=== PATIENT | female | born 1990 | race Caucasian/White ===

== ENCOUNTER 2017-12-04 10:33 | Emergency (ER) | payer OTHER, SELFPAY ==
[2017-12-04 10:33] VITALS: BP 132/82; PULSE 120; RESP 16; TEMP 37; O2SAT 96; BMI 28.3
--- NOTE | 2017-12-04 11:01 | ED.DCSUM_ITS ---
- ER Visit Summary Date of Service: 12/04/17 Chief Complaint: Nausea, vomiting, diarrhea History of Present Illness: The patient is a 27 F who is at 39 weeks and 6 days. Presents with nausea, vomiting, and diarrhea. Symptoms started today at 12:30 AM. She has had diarrhea about every 30 minutes. No blood. She does have some lower abdominal cramping pain. She also reports contractions about once per hour that last about 40 seconds. Denies any fluid leaking or bleeding vaginally. She does have positive movement. She has been exposed to multiple people with a stomach bug at work. Physical Examination: Tachycardic at 120. Otherwise vitals unremarkable. Afebrile. Alert and oriented and in no acute distress. Skin appears normal. Heart regular. Lungs clear. Abdomen gravid and nontender. Test Results: We will check basic labs, urinalysis. Emergency Department Course and Treatment: Patient received fluids and Phenergan. heart tones checked. I paged her OB upon the patient's arrival in the emergency department. heart tones 140. White count 12.3 and hemoglobin 11.2. The unremarkable. Urinalysis appears to show contamination. I sent a culture but there were no bacteria. heart tones 140. Nausea resolved. Patient has occasional diarrhea. Contractions 3-4 times per hour. She was told to go to OB if she has contractions every 10 minutes, 6 an hour. I spoke with Dr. Huggins. Follow-up with OB for any OB issues otherwise no further recommendations. Treatment Plan: As above Disposition: Discharged Impression: 1. Nausea, vomiting, diarrhea 2. Third trimester This note was generated with [employer] international dictation software. It may contain incorrect words, spelling, and punctuation that were not noted in review of the chart prior to signing ED Disposition - Plan for ED Patient: Chief Complaint: Nausea/Vomiting/Diarrhea Referrals: Care Physician,No Primary [Primary Care Provider] -
[2017-12-04] MEDS: 0.9% Normal Saline 1,000 ML 1000 ML IV (11:24)
[2017-12-04 11:36] LABS: Absolute Lymphocyte Count 0.67 X10^3/ul (0.83-4.51); Absolute Neutrophil Count 11.1 X10^3/uL (2.0-7.7); Basophil# 0.01 X10^3/uL; Basophil% 0.1 % (0-1); Eosinophil# 0.04 X10^3/uL; Eosinophils% 0.3 % (0-5); Hematocrit 33.3 % (37-47); Hemoglobin 11.2 g/dl (12.0-15.0); Lymphocyte # 0.67 X10^3/ul (4.0); Lymphocyte % 5.5 % (19-41); Mean Corp Hgb Conc 33.6 g/gl (32-36); Mean Corpuscular Hgb 30.5 pg (27.0-32.0); Mean Corpuscular Volume 90.7 fL (81-99); Mean Platelet Vol. 11.5 fl (6.2-12.0); Monocyte# 0.46 X10^3/uL; Monocyte% 3.7 % (0-10); Neutrophil # 11.05 X10^3/uL (2.7-7.7); Platelet Count 180 K/mm3 (150-450); RBC Distribution Width CV 13.9 % (11.6-14.6); RBC Distribution Width SD 44.2 fl (35.1-43.9); Red Blood Count 3.67 M/mm3 (4.2-5.4); White Blood Count 12.3 K/mm3 (4.4-11.0)
[2017-12-04 11:41] LABS: POSITIVE COUNT NO; POSITIVE DIFFERENTIAL NO; POSITIVE MORPHOLOGY NO
[2017-12-04 11:55] LABS: ALB/GLOB Ratio 0.7 RATIO (0.9-2.4); AST(SGOT) 19 U/L (15-37); Alanine Aminotransfer ALT/SGPT 20 U/L (13-56); Albumin, Serum 2.6 g/dL (3.2-5.0); Alkaline Phosphatase 122 U/L (45-117); Anion Gap 10 (5-15); BUN 11 mg/dL (7-18); BUN/Creat Ratio 23.6 RATIO (10-20); Calcium,Total 8.4 mg/dL (8.5-10.1); Chloride 107 mmol/L (98-107); Creatinine, Serum 0.47 mg/dL (0.55-1.02); EST Glomerular Filtration Rate 171 mL/min (>60); Est Glom Filt Rate - Afr Amer 206 mL/min (>60); Estimated Creatinine Clearance 182.98 ml/min; Globulin 3.9 g/dL (2.2-4.2); Glucose 76 mg/dL (74-106); Potassium 3.6 mmol/L (3.5-5.1); Protein, Total 6.5 g/dL (6.4-8.2); Sodium Level 139 mmol/L (136-145)
--- NOTE | 2017-12-04 11:58 | ED.RN ---
Called lab to request they run urine that was sent with blood. all blood has resulted.
--- NOTE | 2017-12-04 13:01 | ED.RN ---
Called lab again to inquire of urine results as it has been over 1 hr. Rafael said she had to dip it and spin it, so another 7 min.
[2017-12-04 13:03] LABS: Bacteria 0 SEEN /hpf (None Seen); Mucous, Urine 0 SEEN /hpf (<or=2+); Red Blood Cells-Urine 0 SEEN /hpf (0-5)
[2017-12-04 13:04] LABS: Color, Urine Yellow (Yellow); Glucose, Dipstick Normal (Normal); Leukocyte Esterase-Dipstick 25 /ul (Negative); Nitrite-Dipstick Negative (Negative); Occult Blood-Urine Negative /ul (Negative); Protein-Dipstick 15 mg/dl (Negative); Urine Clarity Clear (Clear); Urine Urobilinogen Normal (Normal)
[2017-12-04 13:06] LABS: Ketone-Dipstick 150 mg/dl (Negative); Urine Bilirubin Dipstick 1 mg/dL (Negative)
[2017-12-04 13:10] LABS: Squamous Epithelial Cells - UA 0-5 SEEN /hpf (5-10); White Blood Cells 0-5 SEEN /hpf (0-5)
--- NOTE | 2017-12-04 13:33 | ED.DEP ---
ED Disposition - Plan for ED Patient: Chief Complaint: Nausea/Vomiting/Diarrhea Instructions: ED Vomiting Diarrhea Nonspecific Ad Referrals: Stefani Barajas [STAFF PHYSICIAN] -
[2017-12-04 13:56] VITALS: BP 118/75; PULSE 103; RESP 16; O2SAT 97
== END 2017-12-04 13:57 | disposition home or self-care (01) ==
PROVIDERS: Emergency Provider Emergency Medicine
DX: O99.89 Other specified diseases and conditions complicating pregnancy, childbirth and the puerperium (principal); R11.2 Nausea with vomiting, unspecified; R19.7 Diarrhea, unspecified; R10.30 Lower abdominal pain, unspecified; R00.0 Tachycardia, unspecified; Z3A.39 39 weeks gestation of pregnancy
CPT/HCPCS: 80053; 81001; 85025; 87086; 96361; 96374; 99283; J7030

== ENCOUNTER 2017-12-05 09:10 | Inpatient (IN) | payer OTHER, SELFPAY ==
[2017-12-05 08:50] VITALS: BMI 28.3
[2017-12-05 09:06] LABS: ROM Internal Control Test YES-OK TO RESULT pt. (Internal QC)
[2017-12-05 09:08] LABS: ROM Patient Test POSITIVE (Negative)
[2017-12-05] MEDS: Lactated Ringers 1,000 ML 50 ML IV ×2 (09:51→11:33)
[2017-12-05 09:52] LABS: Hematocrit 32.7 % (37-47); Hemoglobin 10.8 g/dl (12.0-15.0); Mean Corpuscular Hgb 29.8 pg (27.0-32.0); Mean Corpuscular Volume 90.3 fL (81-99); Mean Platelet Vol. 10.9 fl (6.2-12.0); Platelet Count 176 K/mm3 (150-450); RBC Distribution Width SD 45.5 fl (35.1-43.9); Red Blood Count 3.62 M/mm3 (4.2-5.4); Scan Indicated on CBC? Y/N NO; White Blood Count 6.8 K/mm3 (4.4-11.0)
[2017-12-05] MEDS: Oxytocin 30 units/NS 500 ml 30 UNITS/500 ML IV.SOLN IV (10:18)
[2017-12-05] MEDS: fentaNYL-bupivacaine (epidural) 100 ML BAG EPIDURAL (12:05)
--- NOTE | 2017-12-05 12:58 | PCM.HP.OB ---
History Date of Admission: 12/05/17 Final NEWTON: 12/05/17 Final NEWTON Source: LMP Gestational age: 40 Weeks and 0 Days History of this : @ 40 wks c/o SROM and irregular contractions. pt is dated by her LMP c/w first trimester ultrasound. 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 Pertinent Past Medical History: Malignant histocytosis of thorax Allergies No Known Allergies Allergy (Verified 04/15/16 08:11) Current Medications Acetaminophen (Tylenol) 325 - 650 mg PO Q4H PRN PRN PRN Reason: PAIN OR FEVER >100.4F Al Hydroxide/Mg Hydroxide (Mylanta Ii) 15 - 30 ml PO Q4H PRN PRN PRN Reason: INDIGESTION Citric Acid/Sodium Citrate (Bicitra) 30 ml PO UD PRN Lactated Ringer's () 1,000 mls @ 50 mls/hr IV .Q20H [facility] Last Admin: 12/05/17 11:33 Dose: 50 mls/hr Oxytocin/Sodium Chloride () 30 units in 500 mls @ 1 mls/hr IV .Q500H [facility] Naloxone HCl 4 mg/ Dextrose 504 mls @ 0 mls/hr IV PRN PRN; Protocol PRN Reason: TO MAINTAIN RR>10 Nalbuphine HCl (Nubain) 5 - 10 mg IV Q3H PRN PRN PRN Reason: PAIN (4-10/10) Naloxone HCl (Narcan) 0.2 mg IV Q1M PRN PRN Reason: RR<10 AND PT UNRESPONSIVE Stop: 12/06/17 12:44 Ondansetron HCl (Zofran) 4 mg IV Q8H PRN PRN PRN Reason: NAUSEA Promethazine HCl (Phenergan) 6.25 - 12.5 mg IV Q4H PRN PRN; Protocol PRN Reason: IF NAUSEA PERSISTS Sodium Chloride () 5 - 15 ml IV UD [facility] Last Admin: 12/05/17 09:51 Dose: Not Given Smoking Status: Former smoker Alcohol: None Drug Use: none Number of Fetus(es): 1 Physical Exam General: Alert, Oriented x3 Abdomen: Soft, Non Tender, Gravid Estimated gestational size: Appropriate for gestational size Presentation: Cephalic Cervix Dilation (cm): 3 Station: -2 Effacement (%): 60 Assessment/Plan 27yo @ 40 wks in early labor with SROM 1) admit to L&D 2) Monitor fhr/toco 3) Pitocin for augmentation 4) epidural for pain mgmt 5) Anticipate 6) PNL reviewed: A+, GBS neg, Rub imm, HIV neg, HEP B neg, Syphilis neg
--- NOTE | 2017-12-05 13:01 | HP.PCM_ITS ---
History Date of Admission: 12/05/17 Final NEWTON: 12/05/17 Final NEWTON Source: LMP Gestational age: 40 Weeks and 0 Days History of this : @ 40 wks c/o SROM and irregular contractions. pt is dated by her LMP c/w first trimester ultrasound. PMH significant for Malignant histocytosis of thorax - had 7th rib removed. Pertinent Past Medical History: Malignant histocytosis of thorax Allergies No Known Allergies Allergy (Verified 04/15/16 08:11) Current Medications Acetaminophen (Tylenol) 325 - 650 mg PO Q4H PRN PRN PRN Reason: PAIN OR FEVER >100.4F Al Hydroxide/Mg Hydroxide (Mylanta Ii) 15 - 30 ml PO Q4H PRN PRN PRN Reason: INDIGESTION Citric Acid/Sodium Citrate (Bicitra) 30 ml PO UD PRN Lactated Ringer's () 1,000 mls @ 50 mls/hr IV .Q20H [facility] Last Admin: 12/05/17 11:33 Dose: 50 mls/hr Oxytocin/Sodium Chloride () 30 units in 500 mls @ 1 mls/hr IV .Q500H [facility] Naloxone HCl 4 mg/ Dextrose 504 mls @ 0 mls/hr IV PRN PRN; Protocol PRN Reason: TO MAINTAIN RR>10 Nalbuphine HCl (Nubain) 5 - 10 mg IV Q3H PRN PRN PRN Reason: PAIN (4-10/10) Naloxone HCl (Narcan) 0.2 mg IV Q1M PRN PRN Reason: RR<10 AND PT UNRESPONSIVE Stop: 12/06/17 12:44 Ondansetron HCl (Zofran) 4 mg IV Q8H PRN PRN PRN Reason: NAUSEA Promethazine HCl (Phenergan) 6.25 - 12.5 mg IV Q4H PRN PRN; Protocol PRN Reason: IF NAUSEA PERSISTS Sodium Chloride () 5 - 15 ml IV UD [facility] Last Admin: 12/05/17 09:51 Dose: Not Given Smoking Status: Former smoker Alcohol: None Drug Use: none Number of Fetus(es): 1 Physical Exam General: Alert, Oriented x3 Abdomen: Soft, Non Tender, Gravid Estimated gestational size: Appropriate for gestational size Presentation: Cephalic Cervix Dilation (cm): 3 Station: -2 Effacement (%): 60 Assessment/Plan 27yo @ 40 wks in early labor with SROM 1) admit to L&D 2) Monitor fhr/toco 3) Pitocin for augmentation 4) epidural for pain mgmt 5) Anticipate 6) PNL reviewed: A+, GBS neg, Rub imm, HIV neg, HEP B neg, Syphilis neg
[2017-12-05] MEDS: Oxytocin 30 units/NS 500 ml 30 UNITS/500 ML IV.SOLN 334 UNITS IV (13:22)
--- NOTE | 2017-12-05 13:28 | PCM.OB.VAG ---
Vaginal Delivery Maternal Presentation: Spontaneous Rupture of Membranes Method of Induction: - - augmented with Pitocin Amniotic Membrane Rupture Type: Spontaneous at home Amniotic Fluid Description: Lightly stained meconium - when forebag ruptured- light meconium noted Final NEWTON: 12/05/17 Final NEWTON Source: LMP Gestational age: 40 Weeks and 0 Days Date of Procedure: 12/05/17 Pre-Operative Diagnosis: SROM, early labor Post-Operative Diagnosis: Live female infant Surgery/ Procedure Performed: Spontaneous Vaginal Delivery Type of Anesthesia: Epidural Description of Procedure: of live female born without complications. Delayed cord clamping performed. PEDS and Respiratory present for delivery due to meconium Presentation: Vertex Placental Delivery Description: Spontaneous Placenta Disposition: [facility] Cord Vessel Description: 3 Vessels Nuchal Cord Compression: Without compression Cord Entanglement: None Estimated Blood Loss: 200 Infant A gender: Female (1 minute): 8 (5 minute): 9 Episiotomy Description: None Laceration: None Medications given after delivery: IV Pitocin Complications: None
[2017-12-05] MEDS: Oxytocin 30 units/NS 500 ml 30 UNITS/500 ML IV.SOLN 167 UNITS IV (13:53)
[2017-12-05 15:45] VITALS: BP 123/82; PULSE 70; RESP 18
[2017-12-05] MEDS: Naproxen 250 MG Tablet PO ×2 (15:52→23:42)
[2017-12-05 20:40] VITALS: BP 113/70; PULSE 77; RESP 16; TEMP 36.8; O2SAT 97
[2017-12-05] MEDS: Acetaminophen 500 MG Tablet 1000 MG PO (21:22)
[2017-12-05 23:40] VITALS: BP 101/52; PULSE 83; RESP 17; TEMP 36.6; O2SAT 99
[2017-12-06 03:25] VITALS: BP 113/80; PULSE 62; RESP 17; TEMP 36.5; O2SAT 96
[2017-12-06] MEDS: Acetaminophen 500 MG Tablet 1000 MG PO ×3 (05:15→23:10)
[2017-12-06 07:41] VITALS: BP 112/79; PULSE 65; RESP 18; TEMP 36.8
[2017-12-06] MEDS: Naproxen 250 MG Tablet PO ×2 (08:01→17:47)
--- NOTE | 2017-12-06 08:58 | PCM.PN.OB ---
Subjective: pt seen at bedside, doing well. pt reports good pain control. lochia mild. Bottle feeding. - Physical Exam General: Alert, Oriented x3 Abdomen: Soft, Non Tender, - - fundus firm Extremities: No Calf Tenderness Vital Signs Temp Pulse Resp BP Pulse Ox 98.3 F 65 18 112/79 96 12/06/17 07:41 12/06/17 07:41 12/06/17 07:41 12/06/17 07:41 12/06/17 03:25 Oxygen Delivery Method Room Air Weight: 84.4 kg Body Mass Index (BMI) 28.3 Intake and Output for Last 24 Hours 12/04/17 12/05/17 12/06/17 23:59 23:59 23:59 Output Total 1400 / 1400 Balance -1400 / -1400 Laboratory Tests Past 24 Hrs 12/05/17 12/05/17 12/05/17 08:45 09:35 09:35 WBC 6.8 RBC 3.62 L Hgb 10.8 L Hct 32.7 L MCV 90.3 MCH 29.8 MCHC 33.0 RDW 14.0 RDW Differential 45.5 H Plt Count 176 MPV 10.9 Vag Amniotic Fld Detect POSITIVE H Blood Type A POSITIVE Antibody Screen NEGATIVE Medical Necessity - Tobacco Use Smoking Status: Former smoker Assessment/Plan PPD#1, doing well routine care pain mgmt
--- NOTE | 2017-12-06 09:00 | DCINST_ITS ---
Discharge Diet: No Restrictions Discharge Activity: Return to Normal Activity, May not drive while taking narcotic pain medications., May Shower May resume sexual activity in: 4-6 weeks Additional Activity Instructions:: Nothing in the vagina for 4-6 weeks. You may return to work/school in 6 weeks. Call your doctor if your incision/area has: Continuous Slow Oozing, Sudden Increased Bleeding, Increased Pain/ Swelling, Increased Redness, Foul Smelling Discharge Additional Instructions: If you experience any of the following, contact your healthcare provider. * Bleeding that soaks a pad every hour for 2 hours * Fever 100.4 or higher * Unrelieved incision or abdominal pain * Swelling, redness, discharge or bleeding from your incision or episiotomy site * Your incision begins to separate * Problems urinating (including inability to urinate or burning while urinating) . * Visual changes * Severe headache * Flu-like symptoms * Pain or redness in one of both of your breasts * Pain, warmth, tenderness or swelling in your legs, especially the calf area * Frequent nausea and vomiting * Symptoms of depression or anxiety If you experience any of the following, call 911 or go to the nearest Emergency Room. * Chest pain * Problems breathing * Seizure activity * Partial or complete paralysis of a body part, slurred speech, weakness or drooping of the face, or a sudden inability to walk or hold your balance Allergies/Adverse Reactions: Allergies No Known Allergies Allergy (Verified 04/15/16 08:11) Medications to take at Discharge Ascorbic Acid [Vitamin C] 1,000 mg PO DAILY 12/04/17 Vit No.129/Iron/FA [ One Daily Tablet] 1 each PO DAILY Ferrous Sulfate [Iron] 325 mg PO BID 12/05/17 Naproxen [Naprosyn] 250 - 500 mg PO Q8H PRN PRN #30 tab 12/06/17 The following prescriptions were given: Naproxen [Naprosyn] 250 - 500 mg PO Q8H PRN PRN #30 tab PRN Reason: MILD PAIN (1-310) When: Call to make an appointment with your doctor in 6 weeks. If you had elevated Blood Pressure or 4th degree laceration you will need to be seen in 2 weeks. Primary Care Physician: Care Physician,No Primary [Primary Care Provider] -
[2017-12-06 12:00] VITALS: BP 105/63; PULSE 70; RESP 18; TEMP 37.2
[2017-12-06 16:00] VITALS: BP 136/82; PULSE 78; RESP 18; TEMP 36.9
[2017-12-06 19:30] VITALS: BP 116/80; PULSE 66; RESP 16; TEMP 36.9; O2SAT 98
[2017-12-07 03:56] VITALS: BP 110/71; PULSE 83; RESP 16; TEMP 36; O2SAT 96
[2017-12-07] MEDS: Naproxen 250 MG Tablet PO (04:46)
[2017-12-07 08:45] VITALS: BP 121/76; PULSE 73; RESP 20; TEMP 36.4; O2SAT 95
--- NOTE | 2017-12-07 09:05 | PCM.PROGNOTE ---
Subjective: Doing well per patient and nursing staff. Ambulating and taking PO without difficulty. Denies headache, visual changes, chest pain, shortness of breath, increased vaginal bleeding or clots. Breast and bottle feeding. Planning discharge home today. - Physical Exam General: Alert, Oriented x3, Cooperative Lungs: Clear to auscultation, Normal air movement, No rhonchi, No wheeze Cardiovascular: Regular rate, Regular Rhythm, No murmurs Abdomen: Bowel Sounds Present, Soft, - - Fundus firm 2 below U Extremities: No edema, - - Salvador's negative. Psych/Mental Status: Normal Affect, Appropriate Vital Signs Temp Pulse Resp BP Pulse Ox 97.6 F L 73 20 H 121/76 H 95 12/07/17 08:45 12/07/17 08:45 12/07/17 08:45 12/07/17 08:45 12/07/17 08:45 Oxygen Delivery Method Room Air Weight: 186 lb 1.122 oz Body Mass Index (BMI) 28.3 Intake and Output for Last 24 Hours 12/05/17 12/06/17 12/07/17 23:59 23:59 23:59 Output Total 1400 / 1400 Balance -1400 / -1400 Medical Necessity - Tobacco Use Smoking Status: Former smoker Assessment/Plan A: PPD#2 Breast and bottle feeding P: 1) Discharge and instructions given. Planning D/C home today. 2) Follow up in 6 weeks for visit.
== END 2017-12-07 12:25 | disposition home or self-care (01) | DRG 775 ==
LOC: WPOUT 12-07 12:24
PROVIDERS: Admitting Provider Obstetrics & Gynecology; Visit Provider Obstetrics & Gynecology
DX: O77.0 Labor and delivery complicated by meconium in amniotic fluid (principal); Z37.0 Single live birth; Z3A.40 40 weeks gestation of pregnancy; Z87.891 Personal history of nicotine dependence
CPT/HCPCS: 59025; 59050; 84112; 85027; 86850; 86900; 99218; J7120; G0378

== ENCOUNTER → 2020-07-18 09:58 | Outpatient (CLI) | payer OTHER, SELFPAY ==
--- NOTE | 2020-07-18 10:03 | RAD_ITS ---
STUDY: X-RAY - THORACIC SPINE REASON FOR EXAM: Female, 30 years old. Pain TECHNIQUE: 3 view(s) of the thoracic spine were obtained. COMPARISON: None. FINDINGS: There is no evidence of fracture or dislocation in the thoracic spine. The vertebral body heights and disc spaces are well-maintained. There are no significant degenerative changes. RAD/Thoracic Spine 3 Views IMPRESSION: No fracture or dislocation in the thoracic spine. Electronically Signed: Angel Mcnamara, at 17:14 EST Tel , Service support ,
--- NOTE | 2020-07-18 10:12 | RAD_ITS ---
STUDY: X-RAY - CERVICAL SPINE REASON FOR EXAM: Female, 30 years old. Pain TECHNIQUE: 3 view(s) of the cervical spine were obtained. COMPARISON: None FINDINGS: There is no evidence of fracture or dislocation in the cervical spine. The dens is intact. The vertebral body heights and disc spaces are well-maintained. There are no significant degenerative changes. The prevertebral soft tissues are unremarkable. There is no radiodense foreign body. RAD/Cerv Spine 2 or 3 Views IMPRESSION: No fracture or dislocation in the cervical spine. Electronically Signed: Angel Mcnamara, at 17:14 EST Tel , Service support ,
== END ==
PROVIDERS: Referring Provider Anesthesiology Pain Medicine; Visit Provider Anesthesiology Pain Medicine
DX: M54.2 Cervicalgia (principal); M54.9 Dorsalgia, unspecified
CPT/HCPCS: 72040; 72072

== ENCOUNTER → 2024-06-06 | Outpatient (CLI) | payer BC, SELFPAY ==
--- NOTE | 2024-06-06 08:23 | BI_ITS ---
MAMMOGRAPHY - BILATERAL DIAGNOSTIC REASON FOR EXAM: Female, 34 years old. LUMP PERTINENT HISTORY: Non-contributory. TECHNIQUE: Digital examination. Mediolateral oblique (MLO) and craniocaudad (CC) views of both breasts were obtained. CAD: CAD was performed on this study. COMPARISON: None. FINDINGS: Breast Composition: The breasts are heterogeneously dense, which may obscure small masses. There are no dominant masses or suspicious calcifications. No other significant abnormalities are identified. BI/DIAG MAMM W/CAD, BILAT IMPRESSION: Stable bilateral diagnostic mammogram. Ultrasound of the palpable abnormalities in the inferior left breast will be obtained. ASSESSMENT CATEGORY: BIRADS Category 0: Incomplete. Need additional imaging evaluation. A letter regarding these results will be sent to the patient by the facility within 30 days. FOLLOW UP RECOMMENDATION: Ultrasound Recommended. (I) Approximately 10% of breast cancers are not detected by mammography. A normal mammogram should not delay biopsy of a clinically suspicious abnormality. Electronically Signed: Gerson Dozier MD at 9:04 EDT ,
--- NOTE | 2024-06-06 08:23 | US_ITS ---
STUDY: ULTRASOUND BREAST - LEFT REASON FOR EXAM: Female, 34 years old. Palpable mass TECHNIQUE: Axial and longitudinal images of the LEFT breast were performed with a high resolution ultrasound transducer. # OF IMAGES: 31 COMPARISON: Diagnostic mammogram earlier today FINDINGS: LEFT Breast: Heterogeneous background echotexture. Multiple longitudinal and transverse ultrasound images the lower inner quadrant of the left breast in the area of the palpable abnormality do not demonstrate a discrete solid or cystic mass.: US/Breast Limited Unilateral IMPRESSION: Normal diagnostic mammogram left breast ultrasound. However, biopsy of any palpable abnormality should be performed if clinically indicated. ASSESSMENT CATEGORY: BIRADS Category 1: Negative. A letter regarding these results will be sent to the patient by the facility within 30 days. Electronically Signed: Gerson Dozier MD at 13:23 EDT ,
== END | disposition home or self-care (01) ==
LOC: OPBI 08:16
PROVIDERS: Referring Provider Nurse Practitioner Family; Visit Provider Nurse Practitioner Family
DX: N63.20 Unspecified lump in the left breast, unspecified quadrant (principal)
CPT/HCPCS: 76642; 77062; 77066; G0279